=== PATIENT | male | born 1990 | race African-American/Black ===

== ENCOUNTER 2024-02-13 00:37 | Emergency (ER) | payer SELFPAY ==
[2024-02-13 00:53] VITALS: BP 163/89; PULSE 102; RESP 18; TEMP 98.4; BMI 20.3
[2024-02-13] MEDS ORDERED: ACETAMINOPHEN 500 MG TABLET (FP) ONE (02:18)
[2024-02-13] MEDS: ACETAMINOPHEN 500 MG TABLET (FP) PO ONE (02:20)
== END 2024-02-13 03:11 | disposition home or self-care (01) ==
LOC: JER 00:37
PROC: 0HQ0XZZ Repair Scalp Skin, External Approach (ICD-10-PCS; principal; 2024-02-13)
DX: S01.01XA Laceration without foreign body of scalp, initial encounter (principal); S00.81XA Abrasion of other part of head, initial encounter; W22.8XXA Striking against or struck by other objects, initial encounter
CPT/HCPCS: 73030-TC-LT-FY; 99283-25